=== PATIENT | female | born 1975 | race Caucasian/White ===

== ENCOUNTER 2016-06-01 06:32 | Day surgery (SDC) | payer OTHER ==
--- NOTE | 2016-05-31 11:27 | GHP ---
Allergic to demeral. Anaphylactic reaction [f rep st] HISTORY AND PHYSICAL The patient is a 40-year-old, 1, para 0, with a non viable who has elected to have a D and C. MEDICAL HISTORY: Complaint of slight constipation, occasionally dizziness with standing early in . The patient had been spotting during March for 1-1/2 weeks. History of rectal bleeding, anal fissures, and hemorrhoids. A rare UTI. GYNECOLOGICAL HISTORY: Previous abnormal Pap smear in 1999, LIMA-1, with HPV. Patient had a colpo, has been negative since. SURGICAL HISTORY: [place] teeth extraction, frenulumectomy HISTORY: The patient is AMA. The patient's blood type is O positive. On 05/30/2016, the patient came in for her 12 and 6 week exam with inability to hear fhr with doppler. Ultrasound requested which showed no cardiac activity. Discussed with patient choices and options. Patient went home and on 05/31/2016, patient called back and relayed their desire for a dilatation and currettage. Risks, benefits, and alternatives were discussed with patient, and patient wanted to proceed with scheduling procedure. Patient has now been scheduled for 06/01/2016, at 7:30 a.m. in the morning with Dr. Veronica Rincon. Patient understands to be n.p.o. for 8 hours before procedure. Patient will be to labor and delivery on 06/01/2016, at 6:00 a.m. for procedure to proceed at 7:30 in the morning. /[id number]/MODL MTDD
[2016-06-01] MEDS ORDERED: DOXYCYCLINE INJ 100 MG in NS 250 ML IV ONE (07:00)
[2016-06-01 07:32] LABS: % IMMATURE GRANULYOCYTES 0.2 % (0.0-1.1); ABSOLUTE IMMATURE GRANULOCYTES 0.02 10^3/uL (0.00-0.10); ADD DIFF? NO; ADD MORPH? NO; ADD SCAN? NO; ATYPICAL LYMPHOCYTE FLAG 0 (0-99); FRAGMENT RBC FLAG 0 (0-99); HEMATOCRIT 39.2 % (38.0-47.0); HEMOGLOBIN 13.9 g/dL (12.6-16.3); LEFT SHIFT FLG 0 (0-99); LIPEMIA HEMOLYSIS FLAG 90 (0-99); MEAN CELL HEMOGLOBIN 32.7 pg (27.9-34.1); MEAN CELL HEMOGLOBIN CONCENTR. 35.5 g/dL (32.4-36.7); MEAN CELL VOLUME 92.2 fL (81.5-99.8); MEAN PLATELET VOLUME 9.5 fL (8.7-11.7); PLATELET CLUMPS FLAG 0 (0-99); PLATELET COUNT 212 10^3/uL (150-400); RED BLOOD CELL COUNT 4.25 10^6/uL (4.18-5.33); RED CELL DISTRIBUTION WIDTH 12.8 % (11.5-15.2)
[2016-06-01] MEDS ORDERED: LIDOCAINE 2% 5 ML SDV ONE (07:37)
[2016-06-01] MEDS ORDERED: fentaNYL 100 MCG/2 ML INJ ONE ×2 (07:38→09:04)
[2016-06-01] MEDS ORDERED: PROPOFOL 200 MG/20 ML VIAL ONE ×2 (07:38→08:15)
[2016-06-01] MEDS ORDERED: LIDOCAINE 2% JELLY 5 ML TUBE ONE (07:41)
[2016-06-01] MEDS ORDERED: GLYCOPYRROLATE 0.2 MG/1 ML VIAL ONE (07:42)
[2016-06-01] MEDS ORDERED: METOCLOPRAMIDE 10 MG/2 ML VIAL ONE (07:42)
[2016-06-01] MEDS ORDERED: MIDAZOLAM 2 MG/2 ML VIAL IVP ONE (08:00)
[2016-06-01] MEDS ORDERED: DEXAMETHASONE 4 MG/ML VIAL ONE (08:25)
[2016-06-01] MEDS ORDERED: METHYLERGONOVINE MAL 0.2 MG/ML INJ ONE (08:54)
[2016-06-01] MEDS ORDERED: DESFLURANE 240 ML BOTTLE IH ONE (08:57)
[2016-06-01] MEDS ORDERED: OXYTOCIN 10 UNIT/ML VIAL ONE ×2 (09:43→09:53)
[2016-06-01] MEDS ORDERED: MISOPROSTOL 200 MCG TAB ONE (09:44)
[2016-06-01] MEDS ORDERED: PHENYLEPHRINE HCL 100 MCG/ML SYR ONE (09:56)
[2016-06-01] MEDS ORDERED: fentaNYL 100 MCG/2 ML INJ IVP PRN (10:11)
[2016-06-01] MEDS ORDERED: METHYLERGONOVINE MAL 0.2 MG TAB PO ONE (13:00)
[2016-06-01 13:08] LABS: % IMMATURE GRANULYOCYTES 0.5 % (0.0-1.1); ABSOLUTE IMMATURE GRANULOCYTES 0.08 10^3/uL (0.00-0.10); ADD DIFF? NO; ADD MORPH? NO; ADD SCAN? NO; ATYPICAL LYMPHOCYTE FLAG 0 (0-99); FRAGMENT RBC FLAG 0 (0-99); HEMATOCRIT 31.7 % (38.0-47.0); HEMOGLOBIN 11.3 g/dL (12.6-16.3); LEFT SHIFT FLG 0 (0-99); LIPEMIA HEMOLYSIS FLAG 90 (0-99); MEAN CELL HEMOGLOBIN 32.8 pg (27.9-34.1); MEAN CELL HEMOGLOBIN CONCENTR. 35.6 g/dL (32.4-36.7); MEAN CELL VOLUME 92.2 fL (81.5-99.8); MEAN PLATELET VOLUME 9.6 fL (8.7-11.7); PLATELET CLUMPS FLAG 0 (0-99); PLATELET COUNT 197 10^3/uL (150-400); RED BLOOD CELL COUNT 3.44 10^6/uL (4.18-5.33); RED CELL DISTRIBUTION WIDTH 12.5 % (11.5-15.2)
== END 2016-06-01 13:40 | disposition home or self-care (01) ==
LOC: FOBOP 06:32
PROVIDERS: ATTEND Obstetrics & Gynecology
PROC: 10D17ZZ Extraction of Products of Conception, Retained, Via Natural or Artificial Opening (ICD-10-PCS; principal; 2016-06-01)
DX: O02.1 Missed abortion (principal)
CPT/HCPCS: J1100; J2210; J2370; J2704; J2765; J3010

== ENCOUNTER → 2017-05-14 | Outpatient (CLI) | payer OTHER | LOC: FIMAGING 12:45 | PROVIDERS: ATTEND Advanced Practice Midwife | DX: O09.521 Supervision of elderly multigravida, first trimester (principal); Z3A.12 12 weeks gestation of pregnancy ==

== ENCOUNTER → 2017-07-09 | Outpatient (CLI) | payer OTHER | LOC: FIMAGING 07:02 | PROVIDERS: ATTEND Advanced Practice Midwife | DX: O09.522 Supervision of elderly multigravida, second trimester (principal); O43.122 Velamentous insertion of umbilical cord, second trimester; Z3A.20 20 weeks gestation of pregnancy ==

== ENCOUNTER → 2017-09-26 | Outpatient (CLI) | payer OTHER | LOC: FIMAGING 07:58 | PROVIDERS: ATTEND Advanced Practice Midwife | DX: O09.523 Supervision of elderly multigravida, third trimester (principal); Z3A.31 31 weeks gestation of pregnancy ==

== ENCOUNTER 2017-11-08 09:42 | Observation (INO) | payer OTHER ==
--- NOTE | 2017-11-08 12:01 | OBPROG ---
Labor Progress Note Assessment/Plan: Assessment: 42 y/o @ 37 5/7 weeks with visual decel to 50 bpm on NST in office sent over for prolonged monitoring and KORY check Plan: NST reactive, Cat I tracing with no decels US done and KORY at 18 cm with MVP 9 cm Pt reassured and stable for d/c home Reviewed kick counts RTC in 4 days 11/08/17 12:03 Subjective/Intrapartum Course: 11/08/17 12:01 Pt seen and examined. Doing well, no complaints. Good FM noted. Denies any LOF, VB or ctx's. She is eating a salad. 11/08/17 12:03 - Contraction Pattern Assessment Current Contraction Pattern: Irregular (ctx's x2-pt does not feel them; uterine irritability noted) - FHR Assessment Orozco FHR (bpm): 130 FHR Pattern Variability: Moderate FHR Category: 1 - AP Antepartum Course: 11/08/17 12:01 IUP @ 37 5/7 wks; AMA with twice weekly NSTs and weekly KORY checks - Physical Exam General Appearance: WD/WN, alert, no apparent distress Abdomen: non-tender, soft, other (gravid) Skin: normal color, warm/dry Neuro/Psych: alert, normal mood/affect, oriented x 3 Oxytocin Orders Assessment - Pre-Induction/Augmentation Assessment Gestational Age: 37 week(s) and 5 day(s) ICD10 Worksheet Patient Problems: Problems Problem Status Onset Antepartum non-reassuring heart rate or rhythm affecting care of mother Acute - ICD10 Problem Qualifiers (1) Antepartum non-reassuring heart rate or rhythm affecting care of mother
== END 2017-11-08 12:30 | disposition home or self-care (01) ==
LOC: FLD 09:42
PROVIDERS: ADMIT Obstetrics & Gynecology; ATTEND Obstetrics & Gynecology
DX: Z03.79 Encounter for other suspected maternal and fetal conditions ruled out (principal); O09.523 Supervision of elderly multigravida, third trimester; Z3A.37 37 weeks gestation of pregnancy
CPT/HCPCS: 59025; 76811; G0378